=== PATIENT | male | born 1975 | race Caucasian/White ===

== ENCOUNTER 2016-07-16 08:04 | Emergency (ER) | payer BC, MEDICAID ==
[2016-07-16 09:11] LABS: CHLORIDE,CL 107 mmol/L (98-110); SODIUM,NA 140 mmol/L (136-146)
--- NOTE | 2016-07-16 09:45 | EDM.PDOC ---
ED HPI GENERAL MEDICAL PROBLEM - General Chief Complaint: Back Pain or Injury Stated Complaint: LEG Time Seen by Provider: 07/16/16 09:36 - History of Present Illness INITIAL COMMENTS - FREE TEXT/NARRATIVE: HISTORY AND PHYSICAL: History of present illness: Patient 41-year-old male presents with concern of left hip pain patient states she's been using anabolic steroids and is concern regarding venous thromboembolism he denies other trauma concern Review of systems: As per history of present illness and below otherwise all systems reviewed and negative. Past medical history: As per history of present illness and as reviewed below otherwise noncontributory. Surgical history: As per history of present illness and as reviewed below otherwise noncontributory. Social history: No reported history of drug or alcohol abuse. Family history: As per history of present illness and as reviewed below otherwise noncontributory. Physical exam: HEENT: Atraumatic, normocephalic, pupils reactive, negative for conjunctival pallor or scleral icterus, mucous membranes moist, throat clear, neck supple, nontender, trachea midline. Lungs: Clear to auscultation, breath sounds equal bilaterally, chest nontender. Heart: S1S2, regular, negative for clicks, rubs, or JVD. Abdomen: Soft, nondistended, nontender. Negative for masses or hepatosplenomegaly. Negative for costovertebral tenderness. Pelvis: Stable nontender. Genitourinary: Deferred. Rectal: Deferred. Extremities: Atraumatic, negative for cords or calf pain. Neurovascular unremarkable. Neuro: Awake, alert, oriented. Cranial nerves II through XII unremarkable. Cerebellum unremarkable. Motor and sensory unremarkable throughout. Exam nonfocal. Diagnostics: X-ray left hip with pelvis left lower from a venous Doppler Therapeutics: None Impression: #1 left lower extremity pain #2 medical screening exam #3 negative venous Doppler left lower extremity Definitive disposition and diagnosis as appropriate pending reevaluation and review of above. Left hip to Left leg Pain Score (Numeric/FACES): 3 - Related Data Allergies Allergy/AdvReac Type Severity Reaction Status Date / Time No Known Allergies Allergy Verified 07/16/16 08:12 Home Meds: Home Meds Aspirin [Halfprin] 81 mg PO ONETIME 07/16/16 [History] Past Medical History Cardiovascular History: Reports: CA - Past Surgical History Cardiovascular Surgical History: Reports: Other (See Below) Other Cardiovascular Surgeries/Procedures: angioplasty Social & Family History - Family History Family Medical History: Noncontributory - Tobacco Use Smoking Status *Q: Never Smoker Second Hand Smoke Exposure: Yes - Caffeine Use Caffeine Use: Reports: Coffee - Recreational Drug Use Recreational Drug Use: No ED ROS GENERAL - Review of Systems Review Of Systems: ROS reveals no pertinent complaints other than HPI. ED EXAM, GENERAL - Physical Exam Exam: See Below (See dictation) Course - Vital Signs Last Recorded V/S: Last Vital Signs Temp 36.4 C 07/16/16 08:13 Pulse 70 07/16/16 08:13 Resp 16 07/16/16 08:13 BP 129/77 07/16/16 08:13 Pulse Ox 94 L 07/16/16 08:13 - Orders/Labs/Meds Orders: Active Orders 24 hr Category Date Time Status Hip Min 2V or 3V w Pelvis Lt [CR] Stat Exams 07/16/16 08:36 Taken Venous Doppler Lwr Ext Lt [US] Stat Exams 07/16/16 08:36 Taken Labs: Laboratory Tests 07/16/16 07/16/16 07/16/16 Range/Units 08:33 08:41 08:41 WBC 5.55 (4.0-11.0) K/uL RBC 5.48 (4.50-5.90) M/uL Hgb 16.5 (13.0-17.0) g/dL Hct 46.1 (38.0-50.0) % MCV 84.1 (80.0-98.0) fL MCH 30.1 (27.0-32.0) pg MCHC 35.8 (31.0-37.0) g/dL RDW Std Deviation 40.4 (28.0-62.0) fl RDW Coeff of Danae 13 (11.0-15.0) % Plt Count 183 (150-400) K/uL MPV 9.40 (7.40-12.00) fL Neut % (Auto) 57.7 (48.0-80.0) % Lymph % (Auto) 33.7 (16.0-40.0) % Carlton % (Auto) 5.0 (0.0-15.0) % Eos % (Auto) 3.4 (0.0-7.0) % Baso % (Auto) 0.2 (0.0-1.5) % Neut # (Auto) 3.2 (1.4-5.7) K/uL Lymph # (Auto) 1.9 (0.6-2.4) K/uL Carlton # (Auto) 0.3 (0.0-0.8) K/uL Eos # (Auto) 0.2 (0.0-0.7) K/uL Baso # (Auto) 0.0 (0.0-0.1) K/uL Nucleated RBC % 0.0 /100WBC Nucleated RBCs # 0 K/uL Sodium 140 (136-146) mmol/L Potassium 4.5 (3.5-5.1) mmol/L Chloride 107 (98-110) mmol/L Carbon Dioxide 23 (21-31) mmol/L BUN 12 (6.0-23.0) mg/dL Creatinine 1.1 (0.6-1.5) mg/dL Est Cr Clr Drug Dosing TNP Estimated GFR (MDRD) > 60.0 ml/min Glucose 105 (60-110) mg/dL Calcium 8.9 (8.8-10.8) mg/dL Total Bilirubin 0.4 (0.1-1.5) mg/dL AST 34 (5-40) IU/L ALT 63 H (8-54) IU/L Alkaline Phosphatase 71 (40-150) Total Protein 7.7 (6.0-8.0) g/dL Albumin 4.6 (3.5-5.0) g/dL Globulin 3.1 (2.0-3.5) g/dL Albumin/Globulin Ratio 1.5 (1.3-2.8) Urine Color YELLOW Urine Appearance CLEAR Urine pH 5.0 (5.0-8.0) Ur Specific Wilcox >= 1.030 (1.001-1.035) Urine Protein NEGATIVE (NEGATIVE) mg/dL Urine Glucose (UA) NEGATIVE (NEGATIVE) mg/dL Urine Ketones TRACE H (NEGATIVE) mg/dL Urine Occult Blood NEGATIVE (NEGATIVE) Urine Nitrite NEGATIVE (NEGATIVE) Urine Bilirubin NEGATIVE (NEGATIVE) Urine Urobilinogen 0.2 (<2.0) EU/dL Ur Leukocyte Esterase TRACE (NEGATIVE) Urine RBC RARE (0-2/HPF) Urine WBC 0-2 (0-5/HPF) Ur Epithelial Cells FEW (NONE-FEW) Urine Bacteria FEW (NEGATIVE) Urine Mucus LIGHT (NONE-MOD) Departure - Departure Time of Disposition: 09:44 Disposition: Home, Self-Care 01 Condition: good Clinical Impression: Left leg pain, Encounter for medical screening examination - Discharge Information Forms: ED Department Discharge Additional Instructions: The following information is given to patients seen in the emergency department who are being discharged to home. This information is to outline your options for follow-up care. We provide all patients seen in our emergency department with a follow-up referral. The need for follow-up, as well as the timing and circumstances, are variable depending upon the specifics of your emergency department visit. If you don't have a primary care physician on staff, we will provide you with a referral. We always advise you to contact your personal physician following an emergency department visit to inform them of the circumstance of the visit and for follow-up with them and/or the need for any referrals to a consulting specialist. The emergency department will also refer you to a specialist when appropriate. This referral assures that you have the opportunity for followup care with a specialist. All of these measure are taken in an effort to provide you with optimal care, which includes your followup. Under all circumstances we always encourage you to contact your private physician who remains a resource for coordinating your care. When calling for followup care, please make the office aware that this follow-up is from your recent emergency room visit. If for any reason you are refused follow-up, please contact the [facility] emergency department at and asked to speak to the emergency department charge nurse. Stop using anabolic steroids motion/construct at followup primary medical doctor return as needed as discussed - My Orders Last 24 Hours: My Active Orders 07/16/16 08:36 Hip Min 2V or 3V w Pelvis Lt [CR] Stat Venous Doppler Lwr Ext Lt [US] Stat - Assessment/Plan Last 24 Hours: My Active Orders 07/16/16 08:36 Hip Min 2V or 3V w Pelvis Lt [CR] Stat Venous Doppler Lwr Ext Lt [US] Stat
[2016-07-16 10:34] VITALS: BP 144/92
--- NOTE | 2016-07-18 12:56 | CR ---
EXAM DATE: 07/16/16 PATIENT'S AGE: 41 Patient: ADAN DONOVAN Facility: [place], [place] Site . Site : 1975 Study: XRay Hip Left with pelvis [id number]/28/2017 9:04:04 AM Ordering Physician: Doctor Shabazz Final Report: HISTORY: Pain radiating into left leg. Technique: Frontal pelvis and 2 views of the left hip. Comparison: None. Findings: No fracture. Hip joint space is preserved bilaterally. Pubic symphysis and sacroiliac joints are unremarkable. Impression: No acute findings. Dictated by Jim Rivera MD @ Jul 16 2016 9:26AM (Electronic Signature) Report Signed by Proxy. ZAC
--- NOTE | 2016-07-18 12:57 | US ---
EXAM DATE: 07/16/16 PATIENT'S AGE: 41 Patient: ADAN DONOVAN Facility: [place], [place] Site . Site : 1975 Study: US Extremity [id number]/28/2017 9:28:52 AM Ordering Physician: Doctor Shabazz Final Report: HISTORY: Left hip pain radiating into the left leg. Technique: Grayscale and color and spectral Doppler ultrasound of the left lower extremity deep veins. Comparison: None. Findings: Common femoral, femoral, and popliteal veins are patent and compressible with normal response to augmentation. Deep femoral vein is patent. Posterior tibial vein is patent and compressible. Anterior tibial vein is patent and compressible. Peroneal vein is patent. Greater saphenous vein is patent at the junction with the femoral vein. Impression: No left lower extremity DVT. Dictated by Jim Rivera MD @ Jul 16 2016 9:33AM (Electronic Signature) Report Signed by Proxy. ZAC
== END 2016-07-16 09:59 | disposition home or self-care (01) ==
LOC: MW.ED 08:04
DX: M79.605 Pain in left leg (principal); I25.2 Old myocardial infarction; Z13.9 Encounter for screening, unspecified; Z95.5 Presence of coronary angioplasty implant and graft
CPT/HCPCS: 36415; 73502-26-LT; 73502-LT; 80053; 81001; 85025; 93971-26-LT; 93971-LT; 99282; 99284-25